=== PATIENT | female | born 1935 | race Caucasian/White ===

== ENCOUNTER 2019-02-23 07:48 | Emergency (ER) | payer BC, MEDICARE ==
[~2019-02-23] VITALS: Ht 162.6 cm; Wt 80.0 kg
[2019-02-23 07:58] VITALS: BP 176/81
[2019-02-23 08:35] LABS: BASOPHILS # (AUTO) 0.01 x10^3/uL (0-0.1); BASOPHILS % (AUTO) 0 % (0-1); EOSINOPHILS # (AUTO) 0.11 x10^3/uL (0-0.4); EOSINOPHILS % (AUTO) 1 % (1-7); LYMPHOCYTES # (AUTO) 1.39 x10^3/uL (1-3.4); LYMPHOCYTES % (AUTO) 18 % (22-44); MD NO; MEAN CORPUSCULAR HEMOGLOBIN 31.5 pg (27.0-34.8); MEAN CORPUSCULAR VOLUME 95.2 fL (80-100); MEAN PLATELET VOLUME 7.8 fL (7.4-10.4); MONOCYTES # (AUTO) 0.53 x10^3/uL (0.2-0.8); MONOCYTES % (AUTO) 7 % (2-9); NEUTROPHILS # (AUTO) 5.73 x10^3/uL (1.8-6.8); NEUTROPHILS % (AUTO) 74 % (42-75); PLATELET COUNT 226 x10^3/uL (130-400); RED BLOOD COUNT 4.33 x10^6/uL (3.82-5.3); RED CELL DISTRIBUTION WIDTH 12.9 % (9.6-15.2)
[2019-02-23 08:43] LABS: ALBUMIN 3.6 g/dL (3.4-5.0); ANION GAP 6 mmol/L (5-15); CALCIUM 8.8 mg/dL (8.5-10.1); CHLORIDE 106 mmol/L (98-107); CREATININE 1.05 mg/dL (0.55-1.02)
[2019-02-23 08:57] LABS: RAPID INFLUENZA A Negative (Negative); RAPID INFLUENZA B Negative (Negative)
--- NOTE | 2019-02-23 09:00 | NUR ---
PT. IS A & O X 4 WITH C/O SORE THROAT AND URI SYMPTOMS X 3 DAYS. PT. IS PINK, WARM AND DRY. LUNGS ARE CTA. MM ARE PINK AND MOIST WITH PULSES +2 THROUGHOUT. PT.'S RESP ARE EUPNEIC. PCXR HAS BEEN DONE. PT. IS SITTING ON THE STRETCHER IN NO ACUTE DISTRESS. PT. DECLINED A BLANKET FOR WARMTH. CALL LIGHT IS IN PLACE.
--- NOTE | 2019-02-23 09:34 | NUR ---
PT. WAS GIVEN DISCHARGE INSTRUCTIONS WITH UNDERSTANDING VERBALIZED ALONG WITH WILLINGNESS TO COMPLY. PT.'S BP IMPROVED FROM EARLIER.
== END 2019-02-23 09:38 | disposition home or self-care (01) ==
LOC: ED 09:37
DX: J00 Acute nasopharyngitis [common cold] (principal)
CPT/HCPCS: 36415; 71046; 80048; 82040; 85025; 87400; 93005; 99284